=== PATIENT | male | born 1975 | race Caucasian/White ===

== ENCOUNTER 2019-08-28 14:59 | Outpatient (CLI) | payer BC ==
[2019-08-28] MEDS ORDERED: No meds per pt (15:20)
== END 2019-08-28 23:59 | disposition home or self-care (01) ==
LOC: STAR 14:59
PROVIDERS: ATTEND Thoracic Surgery (Cardiothoracic Vascular Surgery)
DX: Z11.59 Encounter for screening for other viral diseases (principal)
CPT/HCPCS: U0001-CS

== ENCOUNTER 2019-09-02 05:58 | Day surgery (SDC) | payer BC, OTHER ==
[~2019-09-02] VITALS: Ht 190.5 cm; Wt 94.0 kg
[~2019-09-02 05:58] MED LIST: No meds per pt
[2019-09-02 06:35] VITALS: BP 119/81
[2019-09-02] MEDS ORDERED: LACTATED RINGERS 1,000 ML IV SCH ×2 (06:38→08:26)
[2019-09-02] MEDS ORDERED: BUPIVACAINE/PF-EPI 0.5% 1:200K ONE (06:51)
[2019-09-02] MEDS ORDERED: CHLORHEXIDINE 15 ML UDC MM ONE (07:00)
[2019-09-02] MEDS ORDERED: ACETAMINOPHEN 500 MG TABLET PO STA (07:05)
[2019-09-02] MEDS ORDERED: ACETAMINOPHEN 500 MG TABLET ONE (07:07)
[2019-09-02] MEDS ORDERED: MIDAZOLAM 1 MG/ML, 2ML ONE (07:08)
[2019-09-02] MEDS ORDERED: FENTANYL PF 250 MCG/5ML ONE (07:08)
[2019-09-02] MEDS ORDERED: SUCCINYLCHOLINE 20 MG/ML, 10ML ONE (07:10)
[2019-09-02] MEDS ORDERED: PROPOFOL 10 MG/ML, 20ML ONE (07:10)
[2019-09-02] MEDS ORDERED: LIDOCAINE-MPF 2% ,5ML ONE ×2 (07:10→08:14)
[2019-09-02] MEDS ORDERED: CEFAZOLIN 1,000 MG ONE (07:21)
[2019-09-02] MEDS ORDERED: ONDANSETRON 2MG/ML, 2ML ONE (07:21)
[2019-09-02] MEDS ORDERED: KETOROLAC 30 MG/1 ML ONE ×2 (07:21→08:11)
[2019-09-02] MEDS ORDERED: OXYcodone 5 MG/5 ML ORAL.SOL UDC PO PRN (07:30)
[2019-09-02] MEDS ORDERED: PROMETHAZINE 25 MG/ML, 1ML IVPush PRN (07:30)
[2019-09-02] MEDS ORDERED: ONDANSETRON 2MG/ML, 2ML IVPush PRN ×2 (07:30→08:30)
[2019-09-02] MEDS ORDERED: DEXAMETHASONE 4 MG/ML, 1ML ONE ×3 (07:32)
[2019-09-02] MEDS ORDERED: morphine SULFATE 10 MG/ML, 1ML IVPush PRN (08:30)
[2019-09-02] MEDS ORDERED: HYDROcodone/APAP 5/325 TABLET PO PRN (08:30)
[2019-09-02] MEDS ORDERED: FENTANYL PF 100 MCG/2ML ONE (09:09)
[2019-09-02] MEDS ORDERED: OXYcodone 5 MG/5 ML ORAL.SOL UDC ONE (09:09)
[2019-09-02] MEDS: FENTANYL PF 100 MCG/2ML IV PRN ×3 (09:12→09:43)
== END 2019-09-02 10:58 | disposition home or self-care (01) ==
LOC: OUT 05:58
PROVIDERS: ATTEND Thoracic Surgery (Cardiothoracic Vascular Surgery)
DX: K40.90 Unilateral inguinal hernia, without obstruction or gangrene, not specified as recurrent (principal); Z11.59 Encounter for screening for other viral diseases; Z98.890 Other specified postprocedural states; Z82.49 Family history of ischemic heart disease and other diseases of the circulatory system; Z80.1 Family history of malignant neoplasm of trachea, bronchus and lung
CPT/HCPCS: 49650; 87635; C1727; C1781; J0330; J0690; J1100; J1885; J2250; J2405; J2704; J3010; J7120